=== PATIENT | male | born 1965 | race Caucasian/White ===

== ENCOUNTER 2024-01-26 13:43 | Emergency (ER) | payer BC, SELFPAY ==
[2024-01-26 13:45] VITALS: BP 151/74; PULSE 66; TEMP 37.1; O2SAT 98; BMI 28.1
[2024-01-26 14:32] LABS: Bilirubin Urine NEGATIVE (NEGATIVE); Blood Urine LARGE (NEGATIVE); Clarity Urine CLOUDY (CLEAR); Color Urine BROWN (YELLOW); Glucose Urine UA NEGATIVE (NEGATIVE); Ketones Urine NEGATIVE (NEGATIVE); Leukocyte Esterase Urine SMALL (NEGATIVE); Nitrite Urine NEGATIVE (NEGATIVE); Protein Urine 30 mg/dL (NEG/TRACE)
[2024-01-26 14:34] LABS: Urine Microscopic Indicated YES
[2024-01-26 14:39] LABS: Bacteria Urine SMALL #/HPF (NONE SEEN); Crystals Seen? None Seen #/HPF (None Seen); Mucus Urine NONE SEEN (NONE SEEN); RBC Urine >100 #/HPF (0-2); Squamous Epithelial Cell Urine FEW #/LPF (NONE/RARE); WBC Urine 75-100 #/HPF (NONE SEEN)
[2024-01-26 14:40] LABS: Cast Seen? NONE SEEN #/LPF (NONE SEEN); Urine Culture Indicated YES
--- NOTE | 2024-01-26 14:42 | ED_ITS ---
HPI - Male Genitourinary General Chief complaint: Urogenital-Male Stated complaint: BLOOD IN URINE Time Seen by Provider: 01/26/24 13:54 Source: patient Mode of arrival: walk-in History of Present Illness HPI Narrative: Patient reports pain with urination and reports blood in his urine this morning. No fever or chills. No nausea, vomiting, abd pain or flank pain. No prior history ofprostate problems. He takes aspirin 3 times a week. His PCP if Dr Neil. Related Data Home Medications ?Medication ?Instructions ?Recorded ?Confirmed atorvastatin 80 mg tablet 80 mg PO DAILY 01/26/24 01/26/24 losartan 100 mg tablet 100 mg PO QAM 01/26/24 01/26/24 metoprolol tartrate 100 mg tablet 100 mg PO BID 01/26/24 01/26/24 nifedipine 90 mg tablet,extended 90 mg PO QAM 01/26/24 01/26/24 release Previous Rx's ?Medication ?Instructions ?Recorded ciprofloxacin HCl 500 mg tablet 500 mg PO BID #10 tabs 01/26/24 (Cipro) Allergies Allergy/AdvReac Type Severity Reaction Status Date / Time No Known Drug Allergies Allergy Verified 01/26/24 13:48 Exam Narrative Exam Narrative: Nurses notes and vital signs reviewed and patient is not hypoxic. afebrile General: Well-appearing and in no apparent distress. Skin: Warm, dry, no pallor noted. Eye: Pupils are equal, round and EOMI. No scleral icterus. Cardiovascular: Regular Rate and Rhythm without murmur, gallop or rub. Respiratory: No accessory muscle use or respiratory distress. Lungs are clear to auscultation, no wheezing, rales or rhonchi Back: No CVA tenderness GI: Abdomen is soft, non-distended. Normal bowel sounds. No masses appreciated. No tenderness to palpation. No rebound, guarding, or rigidity noted. Neurological: A&O x4. No cranial nerve dysfunction observed. No truncal ataxia. Moves all extremities. Sensation intact. Psychiatric: Cooperative and interactive. Normal mood and affect. Constitutional Vital Signs, click to edit/add: Last Vital Signs Temp 98.8 F 01/26/24 13:45 Pulse 66 01/26/24 13:45 Resp 14 01/26/24 13:45 BP 151/74 H 01/26/24 13:45 Pulse Ox 98 01/26/24 13:45 O2 Del Method Room Air 01/26/24 13:45 Course Vital Signs Vital signs: Vital Signs Temperature 98.8 F 01/26/24 13:45 Pulse Rate 66 01/26/24 13:45 Respiratory Rate 14 01/26/24 13:45 Blood Pressure 151/74 H 01/26/24 13:45 Pulse Oximetry 98 01/26/24 13:45 Oxygen Delivery Method Room Air 01/26/24 13:45 Temperature 98.8 F 01/26/24 13:45 Pulse Rate 66 01/26/24 13:45 Respiratory Rate 14 01/26/24 13:45 Blood Pressure 151/74 H 01/26/24 13:45 Pulse Oximetry 98 01/26/24 13:45 Oxygen Delivery Method Room Air 01/26/24 13:45 MDM - Male Genitourinary MDM Narrative Medical decision making narrative: UA reveals acute UTI. he was informed of results and we discussed treatment plan. He was instructed to see Urologist if the bleeding persisted once the course of antibiotics was completed - that info was provided in his DC paperwork. ED return if he worsens. Lab Data Attestation: I reviewed the patient's lab results. Labs: Lab Results 01/26/24 Range/Units 13:52 Urine Color Brown A (YELLOW) Urine Clarity Cloudy A (CLEAR) Urine pH 7.0 (5.0-9.0) Ur Specific [place] 1.020 (1.005-1.025) Urine Protein 30 A (NEG/TRACE) mg/dL Urine Glucose (UA) Negative (NEGATIVE) mg/dL Urine Ketones Negative (NEGATIVE) mg/dL Urine Occult Blood Large A (NEGATIVE) Urine Nitrite Negative (NEGATIVE) Urine Bilirubin Negative (NEGATIVE) Urine Urobilinogen 1.0 (0.2-1.0) EU/dL Ur Leukocyte Esterase Small A (NEGATIVE) Urine RBC >100 A (0-2) #/HPF Urine WBC 75-100 A (NONE SEEN) #/HPF Ur Squamous Epith Cells Few A (NONE/RARE) #/LPF Urine Crystals None seen (None Seen) #/HPF Urine Bacteria Small A (NONE SEEN) #/HPF Urine Casts None seen (NONE SEEN) #/LPF Urine Mucus None seen (NONE SEEN) Ur Culture Indicated? Yes Discharge Plan Discharge Stand Alone Forms: Portal Instructions Chief Complaint: Urogenital-Male Clinical Impression: Urinary tract infection Patient Disposition: Home, Self-Care Time of Disposition Decision: 14:45 Prescriptions / Home Meds: New ciprofloxacin HCl [Cipro] 500 mg tablet 500 mg PO BID Qty: 10 0RF No Action atorvastatin 80 mg tablet 80 mg PO DAILY losartan 100 mg tablet 100 mg PO QAM metoprolol tartrate 100 mg tablet 100 mg PO BID nifedipine 90 mg tablet extended release 90 mg PO QAM Print Language: [place] Instructions: Urinary Tract Infection in Men (ED) Referrals: HEMALATHA NEIL [Physician] - As needed Albert Hancock MD [Physician] - As needed (if hematuria persists after antibiotic course completed.)
== END 2024-01-26 14:50 | disposition home or self-care (01) ==
PROVIDERS: Emergency Provider Emergency Medicine
DX: N39.0 Urinary tract infection, site not specified (principal); Z79.899 Other long term (current) drug therapy; Z79.82 Long term (current) use of aspirin
CPT/HCPCS: 81001; 87086; 87150; 99283